=== PATIENT | female | born 1980 | race Caucasian/White ===

== ENCOUNTER 2017-04-21 20:56 | Emergency (ER) | payer SELFPAY ==
[~2017-04-21] VITALS: Ht 157.5 cm; Wt 54.5 kg
[2017-04-21 21:06] VITALS: BP 123/78
[2017-04-21] MEDS ORDERED: PLEASE ENTER ALLERGIES MC SCH ×2 (21:30)
[2017-04-21] MEDS ORDERED: SODIUM CHLORIDE 0.9% 1,000ML IVBOLUS ONE (21:30)
[2017-04-21] MEDS ORDERED: ONDANSETRON 2MG/ML, 2ML IVPush ONE (21:30)
[2017-04-21] MEDS ORDERED: KETOROLAC 30 MG/1 ML IVPush ONE (21:30)
[2017-04-21 22:12] LABS: HCG UR OBC PASS
== END 2017-04-21 22:10 | disposition left against medical advice (07) ==
LOC: EDBD 20:56 → ED 22:00
DX: R10.32 Left lower quadrant pain (principal); F11.10 Opioid abuse, uncomplicated
CPT/HCPCS: 81025; 99283

== ENCOUNTER 2017-04-26 15:04 | Emergency (ER) | payer SELFPAY ==
[~2017-04-26] VITALS: Ht 157.5 cm; Wt 50.7 kg
[2017-04-26] MEDS ORDERED: SODIUM CHLORIDE FLUSH 10ML SYR IVF ONE (16:00)
[2017-04-26] MEDS ORDERED: SODIUM CHLORIDE 0.9% 1,000ML IVBOLUS ONE (16:00)
[2017-04-26 16:13] LABS: ASPARTATE AMINO TRANSFERASE 18 U/L (15-37); BLOOD UREA NITROGEN 9 mg/dL (7-18)
[2017-04-26] MEDS ORDERED: ONDANSETRON 2MG/ML, 2ML IVPush ONE (16:30)
[2017-04-26] MEDS ORDERED: HYDROmorphone 1 MG/ML, 1ML IVPush PRN (16:30)
[2017-04-26] MEDS ORDERED: HYDROmorphone 1 MG/ML, 1ML ONE (16:51)
[2017-04-26] MEDS ORDERED: ONDANSETRON 2MG/ML, 2ML ONE (16:52)
[2017-04-26] MEDS ORDERED: OMNIPAQUE 350 MG/ML, 100ML BOTTLE ONE (19:34)
[2017-04-26 20:35] VITALS: BP 106/62
== END 2017-04-26 21:10 | disposition home or self-care (01) ==
LOC: ED 20:48
DX: N93.8 Other specified abnormal uterine and vaginal bleeding (principal); R10.32 Left lower quadrant pain
CPT/HCPCS: 36415; 74177; 76830; 80053; 81001; 83690; 84703; 85025; 87086; 96361; 96374; 96375; 99285; J1170; J2405; J7030; Q9967